=== PATIENT | female | born 1945 | race Hispanic/Latino ===

== ENCOUNTER 2019-04-27 06:20 | Inpatient (IN) | payer OTHER | END 2019-04-30 03:00 | disposition EXP | LOC: DAHIP 06:20 → 2CV 12:22 → 2BH 04-28 17:21 | PROC: 02RG0JZ Replacement of Mitral Valve with Synthetic Substitute, Open Approach (ICD-10-PCS; principal; 2019-04-27 07:40) | DX: I08.0 Rheumatic disorders of both mitral and aortic valves (principal); I50.32 Chronic diastolic (congestive) heart failure; I05.0 Rheumatic mitral stenosis; I27.20 Pulmonary hypertension, unspecified; I11.0 Hypertensive heart disease with heart failure; J84.10 Pulmonary fibrosis, unspecified ==